=== PATIENT | male | born 2005 | race Caucasian/White ===

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

== ENCOUNTER 2025-01-27 01:45 | Emergency (ER) | payer OTHER ==
[~2025-01-27] VITALS: Ht 172.7 cm; Wt 77.0 kg
[2025-01-27 01:52] VITALS: BP 140/90; PULSE 110; RESP 16; TEMP 97.9; O2SAT 100
== END 2025-01-27 03:33 | disposition home or self-care (01) ==
LOC: EMS 01:46
DX: F41.9 Anxiety disorder, unspecified (principal); F15.90 Other stimulant use, unspecified, uncomplicated; F12.90 Cannabis use, unspecified, uncomplicated; F17.210 Nicotine dependence, cigarettes, uncomplicated
CPT/HCPCS: 99282; Z7502